=== PATIENT | female | born 1940 | race African-American/Black ===

== ENCOUNTER 2019-01-21 18:05 | Inpatient (IN) | payer MEDICARE, MEDICAID ==
[~2019-01-21] VITALS: Ht 165.1 cm; Wt 93.0 kg
[2019-01-21 18:05] VITALS: BP 127/85
[2019-01-21] MEDS ORDERED: MAGNESIUM/ALUMINUM HYDROXIDE/SIMETHICONE 30ML UDC PO PRN (19:45)
[2019-01-21] MEDS ORDERED: GUAIFENESIN 200MG/10ML SUGAR FREE UDC PO PRN (19:45)
[2019-01-21] MEDS ORDERED: NA PHOS,M-B/NA PHOS,DI-BA ENEMA 118ML PR PRN (19:45)
[2019-01-21] MEDS ORDERED: ACETAMINOPHEN 650MG/20.3ML UDC PO PRN (19:45)
[2019-01-21] MEDS ORDERED: ONDANSETRON 4MG ODT PO PRN (19:45)
[2019-01-21] MEDS ORDERED: DOCUSATE SODIUM 100MG CAPSULE PO PRN (19:45)
[2019-01-21] MEDS ORDERED: CLONIDINE 0.1MG TABLET PO PRN (19:45)
[2019-01-21 20:00] VITALS: BP 131/87
[2019-01-22 00:10] LABS: BASOPHILS % 0.4 % (0.0-2.0); EOSINOPHILS % 2.6 % (0.0-5.0); HEMATOCRIT. 35.9 % (36.0-48.0); HEMOGLOBIN. 11.7 g/dL (12.0-16.0); LYMPHOCYTES % 31.3 % (20.0-50.0); MEAN CORPUSCULAR HEMOGLOBIN 28.4 pg (28.0-32.0); MEAN CORPUSCULAR VOLUME 86.9 fL (81.0-99.0); MEAN PLATELET VOLUME 9.9 fl (7.4-10.4); MONOCYTES % 10.6 % (2.0-8.0); NEUTROPHILS % 55.1 % (40.0-76.0); PLATELET 227 x1000/uL (130-400); RED BLOOD CELL COUNT 4.13 mill/uL (4.2-5.4)
[2019-01-22] MEDS: METOPROLOL TARTRATE 25MG TABLET PO SCH ×3 (03:23→23:00)
[2019-01-22 08:12] VITALS: BP 111/77
[2019-01-22] MEDS: APIXABAN 5 MG TABLET PO SCH ×2 (08:47→16:28)
[2019-01-22] MEDS: MULTIVITAMINS,THER W-MINERALS TABLET PO SCH (08:47)
[2019-01-22] MEDS: ASPIRIN 81MG TABLET PO SCH (08:47)
[2019-01-22] MEDS: MAGNESIUM OXIDE 400MG TABLET PO SCH (08:47)
[2019-01-22 11:20] VITALS: BP 106/65
[2019-01-22] MEDS: HYDROCODONE/APAP 7.5/325MG 1 TAB TABLET PO PRN (11:31)
[2019-01-22 20:00] VITALS: BP 128/83
[2019-01-23 08:00] VITALS: BP 124/70
[2019-01-23 08:03] LABS: BASOPHILS % 0.3 % (0.0-2.0); EOSINOPHILS % 1.7 % (0.0-5.0); LYMPHOCYTES % 14.5 % (20.0-50.0); MEAN CORPUSCULAR HEMOGLOBIN 28.2 pg (28.0-32.0); MEAN PLATELET VOLUME 9.7 fl (7.4-10.4); MONOCYTES % 8.3 % (2.0-8.0); NEUTROPHILS % 75.2 % (40.0-76.0); PLATELET 212 x1000/uL (130-400); RED BLOOD CELL COUNT 3.56 mill/uL (4.2-5.4); RED CELL DISTRIBUTION WIDTH 13.1 % (11.6-14.6)
[2019-01-23 08:12] LABS: PHOSPHORUS 3.4 mg/dL (2.5-4.9)
[2019-01-23] MEDS: MULTIVITAMINS,THER W-MINERALS TABLET PO SCH (08:40)
[2019-01-23] MEDS: ASPIRIN 81MG TABLET PO SCH (08:40)
[2019-01-23] MEDS: APIXABAN 5 MG TABLET PO SCH ×2 (08:40→17:39)
[2019-01-23] MEDS: MAGNESIUM OXIDE 400MG TABLET PO SCH (08:40)
[2019-01-23] MEDS: METOPROLOL TARTRATE 25MG TABLET PO SCH ×2 (08:41→20:22)
[2019-01-23] MEDS: SODIUM CHLORIDE 0.9% 1,000 ML IV SCH ×3 (08:45→20:24)
[2019-01-23] MEDS: HYDROCODONE/APAP 7.5/325MG 1 TAB TABLET PO PRN (10:59)
[2019-01-23] MEDS ORDERED: BISACODYL 10MG SUPP PR PRN (14:00)
[2019-01-23] MEDS ORDERED: BISACODYL 5MG TABLET PO PRN (14:00)
[2019-01-23] MEDS ORDERED: LACTULOSE 20G/30ML UDC PO PRN ×2 (16:00→21:00)
[2019-01-23 20:00] VITALS: BP 153/89
[2019-01-24 00:19] LABS: BASOPHILS % 0.4 % (0.0-2.0); EOSINOPHILS % 1.7 % (0.0-5.0); HEMATOCRIT. 27.3 % (36.0-48.0); LYMPHOCYTES % 12.1 % (20.0-50.0); MEAN CORPUSCULAR HEMOGLOBIN 28.8 pg (28.0-32.0); MEAN CORPUSCULAR VOLUME 87.1 fL (81.0-99.0); MEAN PLATELET VOLUME 9.4 fl (7.4-10.4); MONOCYTES % 7.9 % (2.0-8.0); NEUTROPHILS % 77.9 % (40.0-76.0); PLATELET 209 x1000/uL (130-400); RED BLOOD CELL COUNT 3.14 mill/uL (4.2-5.4)
== END 2019-01-23 22:20 | disposition short-term general hospital (02) | DRG 91 ==
PROVIDERS: ADMIT Psychiatry & Neurology Neurology; ATTEND Hospitalist
DX: G92 Toxic encephalopathy (principal); N17.0 Acute kidney failure with tubular necrosis; K66.1 Hemoperitoneum; M62.82 Rhabdomyolysis; I48.92 Unspecified atrial flutter; E66.01 Morbid (severe) obesity due to excess calories; E78.5 Hyperlipidemia, unspecified; G31.84 Mild cognitive impairment of uncertain or unknown etiology; I10 Essential (primary) hypertension; I48.91 Unspecified atrial fibrillation; M13.0 Polyarthritis, unspecified; F41.9 Anxiety disorder, unspecified; E87.6 Hypokalemia; E83.39 Other disorders of phosphorus metabolism; R55 Syncope and collapse; I95.9 Hypotension, unspecified; F06.31 Mood disorder due to known physiological condition with depressive features; Z68.34 Body mass index [BMI] 34.0-34.9, adult; Z91.81 History of falling
CPT/HCPCS: 36415; 74176; 80048; 83735; 84100; 92523; 97110; 97163; 97166; 97530; 97535; A6261; J7030

== ENCOUNTER 2019-01-23 19:52 | Inpatient (IN) | payer MEDICARE, MEDICAID ==
[~2019-01-23] VITALS: Ht 167.6 cm; Wt 107.5 kg
[2019-01-23 22:40] VITALS: BP 158/86
[2019-01-24] VITALS (7 sets, daily range): BP systolic 104–163; BP diastolic 60–76
[2019-01-24] MEDS ORDERED: BISACODYL 5MG TABLET PO PRN
[2019-01-24] MEDS ORDERED: MAGNESIUM/ALUMINUM HYDROXIDE/SIMETHICONE 30ML UDC PO PRN
[2019-01-24] MEDS ORDERED: DOCUSATE SODIUM 250MG CAPSULE PO PRN
[2019-01-24] MEDS ORDERED: CLONIDINE 0.1MG TABLET PO PRN
[2019-01-24] MEDS ORDERED: ONDANSETRON 4MG ODT PO PRN
[2019-01-24] MEDS ORDERED: BISACODYL 10MG SUPP PR PRN
[2019-01-24] MEDS ORDERED: GUAIFENESIN 200MG/10ML SUGAR FREE UDC PO PRN
[2019-01-24] MEDS ORDERED: ACETAMINOPHEN 325MG TABLET PO PRN
[2019-01-24] MEDS ORDERED: NA PHOS,M-B/NA PHOS,DI-BA ENEMA 118ML PR PRN
[2019-01-24] MEDS ORDERED: LACTULOSE 20G/30ML UDC PO PRN
[2019-01-24 00:37] LABS: PHOSPHORUS 3.3 mg/dL (2.5-4.9)
[2019-01-24] MEDS ORDERED: SODIUM CHLORIDE 0.9% 1,000 ML IV SCH (01:30)
[2019-01-24] MEDS: HYDROCODONE/APAP 7.5/325MG 1 TAB TABLET PO PRN ×2 (01:54→14:08)
[2019-01-24 06:34] LABS: BASOPHILS % 0.3 % (0.0-2.0); EOSINOPHILS % 1.5 % (0.0-5.0); HEMATOCRIT. 25.3 % (36.0-48.0); HEMOGLOBIN. 8.3 g/dL (12.0-16.0); LYMPHOCYTES % 15.2 % (20.0-50.0); MEAN CORPUSCULAR HEMOGLOBIN 28.4 pg (28.0-32.0); MEAN CORPUSCULAR VOLUME 86.5 fL (81.0-99.0); MEAN PLATELET VOLUME 9.6 fl (7.4-10.4); MONOCYTES % 7.5 % (2.0-8.0); NEUTROPHILS % 75.5 % (40.0-76.0); PLATELET 224 x1000/uL (130-400); RED BLOOD CELL COUNT 2.92 mill/uL (4.2-5.4); RED CELL DISTRIBUTION WIDTH 13.2 % (11.6-14.6)
[2019-01-24] MEDS: METOPROLOL TARTRATE 25MG TABLET PO SCH ×2 (09:00→21:50)
[2019-01-24] MEDS: MAGNESIUM OXIDE 400MG TABLET PO SCH (09:39)
[2019-01-24] MEDS: MULTIVITAMINS,THER W-MINERALS TABLET PO SCH (09:39)
[2019-01-24 09:46] LABS: PARTIAL THROMBOPLASTIN TIME 38.5 sec (23.4-31.0); PROTHROMBIN TIME 10.4 sec (9.6-11.0)
[2019-01-24] MEDS ORDERED: INFLUENZA VIRUS VACCINE(AFLURIA) 0.5ML SYR IM ONE (10:00)
[2019-01-24] MEDS: SODIUM CHLORIDE 0.9% 1,000 ML IV SCH (12:25)
[2019-01-24 16:21] LABS: HEMATOCRIT 25.7 % (36.0-48.0); HEMOGLOBIN 8.5 g/dL (12.0-16.0); MEAN CORPUSCULAR HEMOGLOBIN 28.8 pg (28.0-32.0); MEAN CORPUSCULAR VOLUME 87.3 fL (81.0-99.0); PLATELET 206 x1000/uL (130-400); RED BLOOD CELL COUNT 2.95 mill/uL (4.2-5.4); RED CELL DISTRIBUTION WIDTH 13.1 % (11.6-14.6)
[2019-01-24 17:04] LABS: TOTAL IRON BINDING CAPACITY 223 ug/dL (250-450)
[2019-01-25] VITALS (10 sets, daily range): BP systolic 124–151; BP diastolic 56–89
[2019-01-25 00:33] LABS: HEMATOCRIT 28.2 % (36.0-48.0); HEMOGLOBIN 9.5 g/dL (12.0-16.0); MEAN CORPUSCULAR HEMOGLOBIN 29.3 pg (28.0-32.0); PLATELET 207 x1000/uL (130-400); RED BLOOD CELL COUNT 3.24 mill/uL (4.2-5.4); RED CELL DISTRIBUTION WIDTH 13.2 % (11.6-14.6)
[2019-01-25] MEDS: SODIUM CHLORIDE 0.9% 1,000 ML IV SCH ×2 (00:58→14:46)
[2019-01-25] MEDS: HYDROCODONE/APAP 7.5/325MG 1 TAB TABLET PO PRN (03:34)
[2019-01-25] MEDS: METOPROLOL TARTRATE 25MG TABLET PO SCH ×2 (09:00→21:39)
[2019-01-25] MEDS: MULTIVITAMINS,THER W-MINERALS TABLET PO SCH (09:45)
[2019-01-25] MEDS: MAGNESIUM OXIDE 400MG TABLET PO SCH (09:45)
[2019-01-25 09:49] LABS: BASOPHILS % 0.3 % (0.0-2.0); EOSINOPHILS % 0.8 % (0.0-5.0); HEMATOCRIT. 30.5 % (36.0-48.0); HEMOGLOBIN. 10.1 g/dL (12.0-16.0); LYMPHOCYTES % 13.8 % (20.0-50.0); MEAN CORPUSCULAR HEMOGLOBIN 28.6 pg (28.0-32.0); MEAN PLATELET VOLUME 9.7 fl (7.4-10.4); MONOCYTES % 7.2 % (2.0-8.0); NEUTROPHILS % 77.9 % (40.0-76.0); PLATELET 198 x1000/uL (130-400); RED BLOOD CELL COUNT 3.54 mill/uL (4.2-5.4); RED CELL DISTRIBUTION WIDTH 14.2 % (11.6-14.6)
[2019-01-25 10:01] LABS: PHOSPHORUS 2.8 mg/dL (2.5-4.9)
[2019-01-25 16:03] LABS: HEMATOCRIT 29.8 % (36.0-48.0); HEMOGLOBIN 10.1 g/dL (12.0-16.0); MEAN CORPUSCULAR VOLUME 85.7 fL (81.0-99.0); PLATELET 201 x1000/uL (130-400); RED BLOOD CELL COUNT 3.48 mill/uL (4.2-5.4); RED CELL DISTRIBUTION WIDTH 14.1 % (11.6-14.6)
[2019-01-26] VITALS: BP 138/66
[2019-01-26 00:08] LABS: HEMATOCRIT 30.1 % (36.0-48.0); HEMOGLOBIN 10.2 g/dL (12.0-16.0); MEAN CORPUSCULAR HEMOGLOBIN 28.6 pg (28.0-32.0); MEAN CORPUSCULAR VOLUME 84.5 fL (81.0-99.0); PLATELET 196 x1000/uL (130-400); RED BLOOD CELL COUNT 3.56 mill/uL (4.2-5.4); RED CELL DISTRIBUTION WIDTH 14.3 % (11.6-14.6)
[2019-01-26 04:00] VITALS: BP 130/71
[2019-01-26 05:55] LABS: BASOPHILS % 0.3 % (0.0-2.0); EOSINOPHILS % 0.9 % (0.0-5.0); HEMATOCRIT. 31.3 % (36.0-48.0); HEMOGLOBIN. 10.4 g/dL (12.0-16.0); MEAN CORPUSCULAR HEMOGLOBIN 28.3 pg (28.0-32.0); MEAN CORPUSCULAR VOLUME 85.3 fL (81.0-99.0); MEAN PLATELET VOLUME 9.9 fl (7.4-10.4); NEUTROPHILS % 77.8 % (40.0-76.0); PLATELET 207 x1000/uL (130-400); RED BLOOD CELL COUNT 3.67 mill/uL (4.2-5.4); RED CELL DISTRIBUTION WIDTH 13.7 % (11.6-14.6)
[2019-01-26 06:28] LABS: CHLORIDE 109 mEq/L (98-107)
[2019-01-26 06:39] LABS: PHOSPHORUS 2.2 mg/dL (2.5-4.9)
[2019-01-26] MEDS: MAGNESIUM OXIDE 400MG TABLET PO SCH (08:37)
[2019-01-26] MEDS: MULTIVITAMINS,THER W-MINERALS TABLET PO SCH (08:37)
[2019-01-26] MEDS: METOPROLOL TARTRATE 25MG TABLET PO SCH ×2 (08:38→21:30)
[2019-01-26] MEDS: SODIUM CHLORIDE 0.9% 1,000 ML IV SCH (10:33)
[2019-01-26 12:00] VITALS: BP 116/70
[2019-01-26] MEDS: POTASSIUM-SODIUM PHOSPHATE POWDER PACKET PO SCH (15:47)
[2019-01-26 16:00] VITALS: BP 127/52
[2019-01-26 20:00] VITALS: BP 148/70
[2019-01-27] VITALS: BP 130/80
[2019-01-27 04:00] VITALS: BP 145/66
[2019-01-27 08:00] VITALS: BP 135/69
[2019-01-27] MEDS: MULTIVITAMINS,THER W-MINERALS TABLET PO SCH (09:44)
[2019-01-27] MEDS: MAGNESIUM OXIDE 400MG TABLET PO SCH (09:44)
[2019-01-27] MEDS: POTASSIUM-SODIUM PHOSPHATE POWDER PACKET PO SCH ×2 (09:44→17:30)
[2019-01-27] MEDS: METOPROLOL TARTRATE 25MG TABLET PO SCH ×2 (09:45→21:55)
[2019-01-27 12:00] VITALS: BP_SYST 136; BP_SYST 140; BP_DIAS 60; BP_DIAS 68
[2019-01-27 16:00] VITALS: BP 140/60
[2019-01-27 20:00] VITALS: BP 159/89
[2019-01-28 08:00] VITALS: BP 156/88
[2019-01-28 08:38] LABS: BASOPHILS % 0.7 % (0.0-2.0); EOSINOPHILS % 0.9 % (0.0-5.0); HEMATOCRIT. 29.3 % (36.0-48.0); HEMOGLOBIN. 9.7 g/dL (12.0-16.0); LYMPHOCYTES % 15.8 % (20.0-50.0); MEAN CORPUSCULAR HEMOGLOBIN 28.4 pg (28.0-32.0); MEAN CORPUSCULAR VOLUME 85.5 fL (81.0-99.0); MEAN PLATELET VOLUME 9.8 fl (7.4-10.4); MONOCYTES % 9.5 % (2.0-8.0); NEUTROPHILS % 73.1 % (40.0-76.0); PLATELET 204 x1000/uL (130-400); RED BLOOD CELL COUNT 3.43 mill/uL (4.2-5.4)
[2019-01-28 09:28] LABS: CHLORIDE 108 mEq/L (98-107)
[2019-01-28] MEDS: MULTIVITAMINS,THER W-MINERALS TABLET PO SCH (09:53)
[2019-01-28] MEDS: POTASSIUM-SODIUM PHOSPHATE POWDER PACKET PO SCH (09:54)
[2019-01-28] MEDS: MAGNESIUM OXIDE 400MG TABLET PO SCH (09:54)
[2019-01-28] MEDS: METOPROLOL TARTRATE 25MG TABLET PO SCH (09:54)
[2019-01-28 12:00] VITALS: BP 150/73
[2019-01-28 13:06] VITALS: BP 150/73
== END 2019-01-28 14:44 | disposition home or self-care (01) | DRG 393 ==
LOC: 8WST 19:52
PROVIDERS: ADMIT Hospitalist; ATTEND Hospitalist
PROC: 30233N1 Transfusion of Nonautologous Red Blood Cells into Peripheral Vein, Percutaneous Approach (ICD-10-PCS; principal; 2019-01-24)
DX: K66.1 Hemoperitoneum (principal); N17.0 Acute kidney failure with tubular necrosis; G93.41 Metabolic encephalopathy; D62 Acute posthemorrhagic anemia; N18.9 Chronic kidney disease, unspecified; I12.9 Hypertensive chronic kidney disease with stage 1 through stage 4 chronic kidney disease, or unspecified chronic kidney disease; I48.91 Unspecified atrial fibrillation; E78.5 Hyperlipidemia, unspecified; T45.515A Adverse effect of anticoagulants, initial encounter; S30.1XXA Contusion of abdominal wall, initial encounter; X58.XXXA Exposure to other specified factors, initial encounter; Y93.89 Activity, other specified; Y92.89 Other specified places as the place of occurrence of the external cause; Y99.8 Other external cause status
CPT/HCPCS: 36415; 80048; 82728; 83540; 83550; 83735; 84100; 84134; 85027; 86850; 86900; 86920; J7030; P9016; P9021